=== PATIENT | female | born 2000 | race African-American/Black ===

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

== ENCOUNTER 2021-03-15 00:26 | Emergency (ER) | payer MEDICAID, SELFPAY | END 2021-03-15 02:04 | disposition home or self-care (01) | LOC: ERS 00:26 | DX: J20.9 Acute bronchitis, unspecified (principal) | CPT/HCPCS: 71046 ==

== ENCOUNTER 2025-05-25 09:16 | Emergency (ER) | payer OTHER, SELFPAY | END 2025-05-25 10:00 | disposition home or self-care (01) | LOC: ERS 09:16 | DX: R59.0 Localized enlarged lymph nodes (principal) | CPT/HCPCS: 99282 ==